=== PATIENT | male | born 1995 | race Hispanic/Latino ===

== ENCOUNTER → 2024-09-22 | Outpatient (CLI) | payer OTHER, SELFPAY ==
[2024-09-22 22:01] VITALS: PULSE 53; RESP 12
[2024-09-22 22:30] VITALS: PULSE 64; RESP 12
[2024-09-22 23:00] VITALS: PULSE 63; RESP 12
[2024-09-22 23:32] VITALS: PULSE 62; RESP 12
[2024-09-23] VITALS (10 sets, daily range): PULSE 59–69; RESP 10–12
== END | disposition home or self-care (01) ==
LOC: SLP 20:38
PROVIDERS: ATTEND Family Medicine
DX: G47.33 Obstructive sleep apnea (adult) (pediatric) (principal); R06.83 Snoring; G47.8 Other sleep disorders
CPT/HCPCS: 95810